=== PATIENT | female | born 1965 | race Hispanic/Latino ===

== ENCOUNTER 2018-04-08 13:41 | Outpatient (CLI) | payer OTHER ==
--- NOTE | 2018-04-08 15:50 | BD ---
DEXA BONE MINERAL DENSITOMETRY STUDY: 04/08/18 HISTORY: Postmenopausal. FINDINGS: Lumbar Spine: BMD (g/cm2) T-Score Z-Score L1 1.019 0.3 1.1 L2 1.077 0.4 1.4 L3 1.118 0.3 1.3 L4 1.15 0.8 1.9 L1-L4 1.095 0.4 1.4 Left Femoral Neck: 0.815 -0.3 0.7 Total Femur: 1.07 1.0 1.7 Change in bone mineral density compared to study on 02/08/15 indicates a 2.9% increase in bone mineral density of the lumbar spine and a 1.2% decrease in bone mineralization of the left femoral neck. Impression: 1. Normal bone mineralization lumbar spine and left femoral neck. 2. The ten year major osteoporotic risk fracture of 5.1% with ten year hip fracture risk of 0.1% . POS: [facility]
== END 2018-04-08 13:42 | disposition home or self-care (01) ==
LOC: BICMAMMO 13:41
PROVIDERS: ATTEND Specialist
DX: Z12.31 Encounter for screening mammogram for malignant neoplasm of breast (principal); Z13.820 Encounter for screening for osteoporosis
CPT/HCPCS: 77063; 77067; 77080

== ENCOUNTER 2019-04-11 15:45 | Outpatient (CLI) | payer BC ==
--- NOTE | 2019-04-11 16:15 | MMO ---
Bilateral MAMMO Bilat Screen [facility]. CLINICAL HISTORY: Patient is 54 years old and is seen for screening. The patient has no family history of breast cancer. The patient has no personal history of cancer. VIEWS: The views performed were: bilateral craniocaudal with tomosynthesis and bilateral mediolateral oblique with tomosynthesis. FILMS COMPARED: The present examination has been compared to prior imaging studies performed at [facility] on 02/08/2015, 03/26/2016, 04/16/2017 and 04/08/2018. This study has been interpreted with the assistance of computer-aided detection. MAMMOGRAM FINDINGS: The breasts are heterogeneously dense, which could obscure a lesion on mammography. There is a focal asymmetry with obscured margins seen in the CC view only seen in the anterior outer region of the right breast. In the left breast, there are no suspicious masses, calcifications or areas of architectural distortion. IMPRESSION: FOCAL ASYMMETRY IN THE RIGHT BREAST REQUIRES ADDITIONAL EVALUATION. RECOMMEND DIAGNOSTIC MAMMOGRAM. ULTRASOUND MAY ALSO PROVE USEFUL AT RECALL. THE RESULTS OF THIS EXAM WERE SENT TO THE PATIENT. ACR BI-RADS Category 0 - Incomplete: Need additional imaging evaluation. [facility] will notify the patient of the need for additional imaging services. MAMMOGRAPHY NOTE: 1. A negative mammogram report should not delay a biopsy if a dominant of clinically suspicious mass is present. 2. Approximately 10% to 15% of breast cancers are not detected by mammography. 3. Adenosis and dense breasts may obscure an underlying neoplasm. Reported by: INO HARP MD Electonically Signed: [id number]
== END 2019-04-11 15:46 | disposition home or self-care (01) ==
LOC: BICMAMMO 15:45
PROVIDERS: ATTEND Specialist
DX: Z12.31 Encounter for screening mammogram for malignant neoplasm of breast (principal); N64.89 Other specified disorders of breast
CPT/HCPCS: 77063; 77067

== ENCOUNTER 2019-04-13 13:22 | Outpatient (CLI) | payer BC ==
--- NOTE | 2019-04-13 14:02 | MMO ---
Right Breast MAMMO Unilat Diag DDI RT+RENAE. CLINICAL HISTORY: Patient is 54 years old and is seen for diagnostic exam. The patient has no family history of breast cancer. The patient has no personal history of cancer. VIEWS: The views performed were: right craniocaudal spot compression with tomosynthesis and right mediolateral with tomosynthesis. FILMS COMPARED: The present examination has been compared to prior imaging studies performed at [facility] on 03/26/2016, 04/16/2017, 04/08/2018 and 04/11/2019. This study has been interpreted with the assistance of computer-aided detection. MAMMOGRAM FINDINGS: The breast is heterogeneously dense, which could obscure a lesion on mammography. There are no suspicious masses, suspicious calcifications, or new areas of architectural distortion. The area of concern on prior screening examination did not persist on this study. IMPRESSION: THERE IS NO MAMMOGRAPHIC EVIDENCE OF MALIGNANCY. A ROUTINE FOLLOW-UP MAMMOGRAM IN 1 YEAR IS RECOMMENDED. THE RESULTS OF THIS EXAM WERE SENT TO THE PATIENT. ACR BI-RADS Category 1 - Negative MAMMOGRAPHY NOTE: 1. A negative mammogram report should not delay a biopsy if a dominant of clinically suspicious mass is present. 2. Approximately 10% to 15% of breast cancers are not detected by mammography. 3. Adenosis and dense breasts may obscure an underlying neoplasm. Reported by: PRISCILLA GAMBOA MD Electonically Signed: [id number]
== END 2019-04-13 13:23 | disposition home or self-care (01) ==
LOC: BICMAMMO 13:22
PROVIDERS: ATTEND Specialist
DX: N64.89 Other specified disorders of breast (principal)
CPT/HCPCS: G0279

== ENCOUNTER 2020-04-26 14:43 | Outpatient (CLI) | payer BC ==
--- NOTE | 2020-04-26 15:22 | MMO ---
Bilateral MAMMO Bilat Screen [facility]. CLINICAL HISTORY: Patient is 55 years old and is seen for screening. The patient has no family history of breast cancer. The patient has no personal history of cancer. VIEWS: The views performed were: bilateral craniocaudal with tomosynthesis and bilateral mediolateral oblique with tomosynthesis. FILMS COMPARED: The present examination has been compared to prior imaging studies performed at [facility] on 04/16/2017, 04/08/2018, 04/11/2019 and 04/13/2019. This study has been interpreted with the assistance of computer-aided detection. MAMMOGRAM FINDINGS: The breasts are heterogeneously dense, which could obscure a lesion on mammography. There are no suspicious masses, suspicious calcifications, or new areas of architectural distortion. IMPRESSION: THERE IS NO MAMMOGRAPHIC EVIDENCE OF MALIGNANCY. A ROUTINE FOLLOW-UP MAMMOGRAM IN 1 YEAR IS RECOMMENDED. THE RESULTS OF THIS EXAM WERE SENT TO THE PATIENT. ACR BI-RADS Category 1 - Negative MAMMOGRAPHY NOTE: 1. A negative mammogram report should not delay a biopsy if a dominant of clinically suspicious mass is present. 2. Approximately 10% to 15% of breast cancers are not detected by mammography. 3. Adenosis and dense breasts may obscure an underlying neoplasm. Reported by: INO HARP MD Electonically Signed: [id number]
== END 2020-04-26 14:44 | disposition home or self-care (01) ==
LOC: BICMAMMO 14:43
PROVIDERS: ATTEND Specialist
DX: Z12.31 Encounter for screening mammogram for malignant neoplasm of breast (principal)
CPT/HCPCS: 77063; 77067

== ENCOUNTER 2021-05-13 12:44 | Outpatient (CLI) | payer BC | END 2021-05-13 12:45 | disposition home or self-care (01) | LOC: BICMAMMO 12:44 | PROVIDERS: ATTEND Specialist | DX: Z12.31 Encounter for screening mammogram for malignant neoplasm of breast (principal); M81.0 Age-related osteoporosis without current pathological fracture | CPT/HCPCS: 77063; 77067; 77080 ==

== ENCOUNTER 2023-01-15 07:36 | Outpatient (CLI) | payer BC | END 2023-01-15 07:37 | disposition home or self-care (01) | LOC: BICMAMMO 07:36 | PROVIDERS: ATTEND Specialist | DX: Z12.31 Encounter for screening mammogram for malignant neoplasm of breast (principal) | CPT/HCPCS: 77063; 77067 ==

== ENCOUNTER 2024-04-28 13:43 | Outpatient (CLI) | payer BC | END 2024-04-28 13:44 | disposition home or self-care (01) | LOC: BICMAMMO 13:43 | PROVIDERS: ATTEND Specialist | DX: Z12.31 Encounter for screening mammogram for malignant neoplasm of breast (principal) | CPT/HCPCS: 77063; 77067 ==